=== PATIENT | female | born 1945 | race Caucasian/White ===

== ENCOUNTER 2016-09-12 14:08 | Emergency (ER) | payer MEDICARE, BC ==
--- NOTE | 2016-09-12 14:45 | ED.PDOC ---
History of Present Illness - General Chief Complaint: Back Pain or Injury Stated Complaint: right hip discomfort Time Seen by Provider: 09/12/16 14:39 Source: patient Exam Limitations: no limitations Additional Information: PT C/O PAIN TO R UPPER LEG AND INGUINAL AREA WHICH RADIATES DOWN R LEG. NO HX OF TRAUMA - History of Present Illness Timing/Duration: other - LAST NIGHT Severity: mild Improving Factors: nothing Worsening Factors: rest Associated Symptoms: denies symptoms Home Medications: Ambulatory Orders Cyclobenzaprine HCl [Flexeril] 10 mg PO TID PRN #15 tab 09/12/16 Indomethacin 50 mg PO TID PRN #14 cap 09/12/16 Review of Systems - Review of Systems Constitutional: Denies: chills, fever EENTM: Denies: blurred vision, double vision, ear discharge, nose pain Respiratory: Denies: cough, short of breath Cardiology: Denies: chest pain, palpitations Gastrointestinal/Abdominal: Denies: abdominal pain, constipation, nausea, vomiting Genitourinary: States: no symptoms reported Musculoskeletal: Denies: back pain, joint pain, joint swelling, muscle pain, neck pain Skin: Denies: change in color, dryness, lesions, rash Neurological: Denies: numbness, paresthesia, tingling, weakness Endocrine: States: no symptoms reported Hematologic/Lymphatic: States: no symptoms reported Past Medical History (General) - Patient Medical History Hx Stroke: Yes - 2011 - residual, memory loss Hx Congestive Heart Failure: No Hx Hypertension: Yes Hx Diabetes: No Hx MRSA: No - Vaccination History Hx Influenza Vaccination: Yes - 2015 Hx Pneumococcal Vaccination: Yes - 2012 - but will not take anymore secondary to a reaction - Social History Hx Tobacco Use: No - Female History Patient is a Female of Child Bearing Age (10 -59 yrs old): No Family Medical History - Family History Mother Family History: No Known Living Status: Physical Exam - Physical Exam General Appearance: Alert, Comfortable, No apparent distress Eye Exam: bilateral normal Ears, Nose, Throat: normal ENT inspection, abnormal TM (L) Neck: non-tender, full range of motion, supple Respiratory: lungs clear, normal breath sounds Cardiovascular/Chest: regular rate, rhythm, no edema Gastrointestinal/Abdominal: normal bowel sounds, non tender, soft, no organomegaly Back Exam: normal inspection, no CVA tenderness, no vertebral tenderness Extremity: normal range of motion, other - MILD TTP R UPPER LEG, NO LESIONS, TENDERNESS EXTENDS DOWN TO MID LEG. NVI Neurologic: no motor/sensory deficits, alert, normal mood/affect, oriented x 3 Skin Exam: normal color Lymphatic: no adenopathy Departure - Departure Clinical Impression: Leg pain, right Time of Disposition: 14:54 Disposition: Discharge to Home or Self Care Condition: Excellent Departure Forms: ED Discharge - Pt. Copy, Patient Portal Self Enrollment Instructions: DI for Back Pain With Sciatica Prescriptions: Cyclobenzaprine HCl [Flexeril] 10 mg PO TID PRN #15 tab PRN Reason: Pain Indomethacin 50 mg PO TID PRN #14 cap PRN Reason: Pain Home Medications: Ambulatory Orders Cyclobenzaprine HCl [Flexeril] 10 mg PO TID PRN #15 tab 09/12/16 Indomethacin 50 mg PO TID PRN #14 cap 09/12/16
[2016-09-12] MEDS ORDERED: TRIAMCINOLONE ACETONIDE INJ 40 MG/ML VIAL IM ONE (14:47)
[2016-09-12 15:42] VITALS: O2SAT 96
[2016-09-12 15:43] VITALS: BP 143/75; TEMP 97.9
== END 2016-09-12 15:40 | disposition home or self-care (01) ==
LOC: ER 14:08
DX: M79.604 Pain in right leg (principal); I69.398 Other sequelae of cerebral infarction; I10 Essential (primary) hypertension

== ENCOUNTER → 2016-09-19 | Outpatient (CLI) | payer MEDICARE, BC ==
--- NOTE | 2016-09-19 11:15 | US ---
Study: Renal sonogram. Indication: CALCULUS OF KIDNEY Comparison: None. Technique: Multiplanar grayscale sonographic images of the kidneys obtained. Findings: The bilateral kidneys are appropriate in echogenicity without hydronephrosis or nephrolithiasis. The right kidney measures 9.7 by 5.7 by 0.3 cm. The left kidney measures 9.4 by 3.9 by 4.9 cm. 3 left renal cysts noted with the largest measuring up to 3.0 cm. The bladder is normal in appearance. Impression: 1. No sonographic evidence of acute process of the kidneys. Electronically signed by: Edward Pereira MD 09/19/2016 11:13
== END ==
LOC: US 09:25
PROVIDERS: ATTEND Family Medicine
DX: N20.0 Calculus of kidney (principal)

== ENCOUNTER → 2016-10-05 | Outpatient (CLI) | payer MEDICARE, BC | LOC: LAB.O 12:18 | PROVIDERS: ATTEND Internal Medicine Cardiovascular Disease | DX: I11.9 Hypertensive heart disease without heart failure (principal); N18.2 Chronic kidney disease, stage 2 (mild) ==

== ENCOUNTER → 2017-03-27 | Outpatient (CLI) | payer MEDICARE, BC | END | disposition home or self-care (01) | LOC: GMAB 10:31 | PROVIDERS: ATTEND Family Medicine | DX: E03.9 Hypothyroidism, unspecified (principal) ==

== ENCOUNTER → 2018-04-11 | Outpatient (CLI) | payer MEDICARE, BC | LOC: GMAE 10:10 | PROVIDERS: ATTEND Family Medicine | DX: E03.9 Hypothyroidism, unspecified (principal) ==

== ENCOUNTER → 2018-07-15 | Outpatient (CLI) | payer MEDICARE, BC | LOC: GMAE 14:46 | PROVIDERS: ATTEND Family Medicine | DX: E03.9 Hypothyroidism, unspecified (principal) ==

== ENCOUNTER → 2019-10-20 | Outpatient (CLI) | payer MEDICARE, BC | LOC: GMAE 10:50 | PROVIDERS: ATTEND Family Medicine | DX: E03.9 Hypothyroidism, unspecified (principal); E78.5 Hyperlipidemia, unspecified; M10.9 Gout, unspecified; I10 Essential (primary) hypertension ==

== ENCOUNTER → 2020-11-01 | Outpatient (CLI) | payer MEDICARE, BC | LOC: GMAE 12:33 | PROVIDERS: ATTEND Family Medicine | DX: E03.9 Hypothyroidism, unspecified (principal); I10 Essential (primary) hypertension; Z79.899 Other long term (current) drug therapy; E78.5 Hyperlipidemia, unspecified; M10.9 Gout, unspecified ==